=== PATIENT | female | born 1985 | race Caucasian/White ===

== ENCOUNTER 2020-12-11 14:10 | Emergency (ER) | payer MEDICAID ==
[~2020-12-11] VITALS: Ht 165.1 cm; Wt 93.0 kg
[2020-12-11 14:28] VITALS: BP 122/76
--- NOTE | 2020-12-11 14:32 | NUR ---
LAVINIA. HANDED ON URINE CUP.
[2020-12-11 15:18] LABS: BASOPHILS % (AUTO) 0.6 % (0.0-2.0); EOSINOPHILS # (AUTO) 0.1 K/uL (0-0.4); EOSINOPHILS % (AUTO) 0.9 % (0.0-4.0); HEMOGLOBIN 12.6 g/dL (12.0-16.0); LYMPHOCYTES # (AUTO) 2.2 K/uL (2.5-16.5); MEAN CORPUSCULAR HEMOGLOBIN 28 pg (27-31); MEAN CORPUSCULAR HGB CONC 33 g/dL (33-37); MEAN CORPUSCULAR VOLUME 83.3 fL (80-94); MONOCYTES # (AUTO) 0.4 K/uL (0.8-1.0); MONOCYTES % (AUTO) 5.2 % (1.7-9.3); NEUTROPHILS # (AUTO) 4.8 K/uL (1.8-7.7); NEUTROPHILS % (AUTO) 64.3 % (42.2-75.2); PLATELET COUNT (AUTO) 200 K/uL (140-450); RED BLOOD CELL COUNT(AUTO) 4.55 MIL/uL (4.20-5.40); RED CELL DISTRIBUTION WIDTH 14.9 % (11.6-13.7); WHITE BLOOD COUNT (AUTO) 7.4 K/uL (4.8-10.8)
[2020-12-11 15:40] LABS: ALBUMIN 4.1 g/dL (3.4-5.0); ANION GAP 13.5 (8-16); CARBON DIOXIDE 26.6 mmol/L (21-32); CREATININE 0.7 mg/dL (0.6-1.3); POTASSIUM 4.1 mmol/L (3.5-5.1); TOTAL BILIRUBIN 0.3 mg/dL (0.0-1.0)
--- NOTE | 2020-12-11 17:40 | NUR ---
NO NEED NURSING INTERVENTIONS. SEEN & TREATED BY DR FULLER.
--- NOTE | 2020-12-11 17:43 | NUR ---
Patient discharged with v/s stable. Written and verbal after care instructions given and explained. Patient verbalized understanding. Ambulatory with steady gait. All questions addressed prior to discharge. Advised to follow up with PMD.
[2020-12-11 17:44] VITALS: BP 122/76
== END 2020-12-11 17:43 | disposition home or self-care (01) ==
LOC: MED 14:10
DX: O20.9 Hemorrhage in early pregnancy, unspecified (principal); Z3A.01 Less than 8 weeks gestation of pregnancy; Z98.890 Other specified postprocedural states
CPT/HCPCS: 36415; 76801; 80053; 81025; 84702; 85025; 86900; 86901; 99284; Q0092

== ENCOUNTER 2020-12-18 16:58 | Emergency (ER) | payer MEDICAID ==
[~2020-12-18] VITALS: Ht 165.1 cm; Wt 94.3 kg
[2020-12-18 17:22] VITALS: BP 148/87
--- NOTE | 2020-12-18 17:27 | NUR ---
PT SENT TO LOBBY
--- NOTE | 2020-12-18 21:02 | NUR ---
PATIENT ELOPED FROM FACILITY. DISCHARGE INSTRUCTIONS NOT GIVEN TO PATIENT. DR. AMAYA NOTIFIED.
== END 2020-12-18 21:01 | disposition home or self-care (01) ==
LOC: MED 16:58
DX: O20.8 Other hemorrhage in early pregnancy (principal); O21.8 Other vomiting complicating pregnancy; Z3A.01 Less than 8 weeks gestation of pregnancy
CPT/HCPCS: 36415; 76817; 84702; 99284; Q0092